=== PATIENT | female | born 1960 | race Caucasian/White ===

== ENCOUNTER 2021-08-01 20:11 | Inpatient (IN) ==
[2021-08-02 01:18] LABS: ABS Lymphocytes 0.9 10^3/ul (1.0-4.8); ABS Monocytes 0.4 10^3/ul (0-0.8); Hematocrit 30 % (35-47); Lymphocyte % 13.8 %; Mean Corpuscular HGB Conc 33 g/dL (31-36); Mean Corpuscular Hemoglobin 29 pg (27-31); Mean Corpuscular Volume 87 fL (80-97); Mean Platelet Volume 8.2 fL (7.4-10.4); Nucleated Red Blood Cells % 0.1; Platelet Count 228 10^3/uL (150-450); Red Blood Count 3.45 10^6 /uL (3.70-4.87); Red Cell Distribution Width 19 % (10-15); White Blood Count 6.3 10^3/uL (3.5-10.8)
[2021-08-02 01:35] LABS: Albumin/Globulin Ratio 1.3 (1-3); C Reactive Protein 45.24 mg/L (<8.01); Calcium 8.7 mg/dL (8.6-10.3); EGFR African American 108.3 (>60); EGFR Non-African American 89.5 (>60); Potassium 3.3 mmol/L (3.5-5.0); Total Bilirubin 0.4 mg/dL (0.2-1.0)
[2021-08-02 01:55] LABS: PCO2 Arterial 36 mmHg (35-45); PO2 Arterial 86 mmHg (80-100)
[2021-08-02] MEDS ORDERED: Al Hydrox/Mg Hydrox/Simet LIQ 30 ML UDC PO PRN (04:11)
[2021-08-02] MEDS ORDERED: Remdesivir 100 mg Vial 200 MG in NS 0.9% 250 ml 210 ML IV ONE (04:16)
[2021-08-02] MEDS ORDERED: Dextrose 50% Syringe 50 ml 25 GM/50 ML SYRINGE IV PUSH PRN (05:10)
[2021-08-02] MEDS ORDERED: NS 0.9% w/ 40 Meq KCL 1000 ML 1,000 ML IV SCH (06:00)
[2021-08-02 06:13] LABS: Albumin 3.6 g/dL (3.2-5.2); Albumin/Globulin Ratio 1.1 (1-3); Calcium 8.6 mg/dL (8.6-10.3); EGFR African American 108.3 (>60); EGFR Non-African American 89.5 (>60); Globulin 3.3 g/dL (2-4); Potassium 3.3 mmol/L (3.5-5.0); Total Bilirubin 0.4 mg/dL (0.2-1.0); Total Protein 6.9 g/dL (6.4-8.9)
[2021-08-02 10:17] LABS: INR 1.14 (0.86-1.15)
[2021-08-02] MEDS: Enoxaparin 40 MG/0.4 ML SYR SUBCUT SCH (11:17)
[2021-08-03 07:32] LABS: INR 1.09 (0.86-1.15)
[2021-08-03 07:42] LABS: Albumin 3.7 g/dL (3.2-5.2); Albumin/Globulin Ratio 1.1 (1-3); Calcium 9.2 mg/dL (8.6-10.3); EGFR African American 145.1 (>60); EGFR Non-African American 119.9 (>60); Globulin 3.3 g/dL (2-4); Potassium 3.6 mmol/L (3.5-5.0); Total Bilirubin 0.3 mg/dL (0.2-1.0)
[2021-08-03] MEDS: Enoxaparin 40 MG/0.4 ML SYR SUBCUT SCH (09:01)
[2021-08-03] MEDS: Remdesivir 100 mg Vial 100 MG in NS 0.9% 250 ml 230 ML IV SCH (09:01)
[2021-08-04 06:19] LABS: INR 1.12 (0.86-1.15)
[2021-08-04 06:30] LABS: Albumin 3.4 g/dL (3.2-5.2); Albumin/Globulin Ratio 1.1 (1-3); Calcium 8.7 mg/dL (8.6-10.3); EGFR African American 145.1 (>60); EGFR Non-African American 119.9 (>60); Potassium 3.4 mmol/L (3.5-5.0); Total Bilirubin 0.3 mg/dL (0.2-1.0); Total Protein 6.4 g/dL (6.4-8.9)
[2021-08-04] MEDS: Enoxaparin 40 MG/0.4 ML SYR SUBCUT SCH (09:16)
[2021-08-04] MEDS: Remdesivir 100 mg Vial 100 MG in NS 0.9% 250 ml 230 ML IV SCH (09:22)
[2021-08-05 07:17] LABS: Albumin 3.4 g/dL (3.2-5.2); Albumin/Globulin Ratio 1.1 (1-3); Calcium 8.6 mg/dL (8.6-10.3); EGFR African American 138.9 (>60); EGFR Non-African American 114.8 (>60); Potassium 3.6 mmol/L (3.5-5.0); Total Bilirubin 0.3 mg/dL (0.2-1.0); Total Protein 6.4 g/dL (6.4-8.9)
[2021-08-05 07:18] LABS: INR 1.19 (0.86-1.15)
[2021-08-05] MEDS: Enoxaparin 40 MG/0.4 ML SYR SUBCUT SCH (08:34)
[2021-08-05] MEDS: Remdesivir 100 mg Vial 100 MG in NS 0.9% 250 ml 230 ML IV SCH (10:00)
[2021-08-05 12:17] VITALS: BP 112/62
== END 2021-08-05 17:50 | disposition home or self-care (01) | DRG 137 ==
LOC: ED 20:11 → SUATTDRO 08-02 04:11 → MED 08-02 04:11
PROVIDERS: ADMIT Internal Medicine; ATTEND Internal Medicine

== ENCOUNTER 2024-04-30 09:29 | Inpatient (IN) ==
[2024-04-30] MEDS: Lactated Ringers SEPSIS* BAG 1,370 ML IV ONE (10:32)
[2024-04-30 10:44] LABS: Hematocrit 27.8 % (35-45); Hemoglobin 8.4 g/dL (11.5-14.3); Mean Corpuscular Hgb Conc 30.1 g/dL (31-36); Mean Corpuscular Volume 76.5 fL (80-97); Mean Platelet Volume 9.6 fL (7.5-11.2); Platelet Count 177 10^3/uL (150-450); Red Blood Count 3.63 10^6/uL (3.63-4.92); Red Cell Distribution Width 20.3 % (12-17); White Blood Count 17.3 10^3/uL (3.8-11.8)
[2024-04-30 10:56] LABS: Activated Partial Thrombo Time 27.9 seconds (26.0-38.0); INR 0.98 (0.83-1.13)
[2024-04-30] MEDS: Cefepime 2 GM in Dextrose 2 GM/50 ML BAG IV ONE (11:06)
[2024-04-30] MEDS: LACTATED RINGERS IV SCH (11:11)
[2024-04-30 11:35] LABS: Albumin 3.6 g/dL (3.2-5.2); Albumin/Globulin Ratio 1.2 (1-3); C Reactive Protein 218.4 mg/L (<8.01); Calcium 8.6 mg/dL (8.6-10.3); Creatinine, Serum 1.9 mg/dL (0.51-0.95); Potassium 4.2 mmol/L (3.5-5.0); Total Bilirubin 0.6 mg/dL (0.2-1.0); Total Protein 6.6 g/dL (6.4-8.9); eGFR CKD-EPI 29.3 (>60)
[2024-04-30 11:47] LABS: ABS Lymphocytes 0.3 10^3/uL (1.0-4.8); ABS Nucleated RBC 0.03 10^3/ul; Eosinophil % 0.1 %; Hypochromasia 2+; Lymphocyte % 1.6 %; Nucleated Red Blood Cells % 0.2 %/100WBC (0.0-0.8); Polychromasia 1+
[2024-04-30] MEDS: metroNIDAZOLE IV 500 MG/100ML 500 MG/100 ML BAG IVPB ONE (11:55)
[2024-04-30 12:34] LABS: High Sensitivity Troponin 1 Hr 94 pg/mL (<15)
[2024-04-30 12:46] LABS: Urine Appearance Turbid; Urine Bilirubin Negative (Negative); Urine Blood 2+ (Negative); Urine Color Light-Yellow; Urine Glucose 2+ (>=150 mg/dL) (Negative); Urine Ketones Negative (Negative); Urine Nitrite Negative (Negative); Urine Protein Trace (Negative); Urine Specific Gravity 1.003 (1.002-1.030); Urine Urobilinogen Negative (Negative); Urine pH 6.5 (5.0-8.0)
[2024-04-30 13:12] LABS: Urine Bacteria Absent /HPF (Absent); Urine Red Blood Cell 2+(6-10/hpf) /HPF (0-Trace); Urine Squamous Epithelial Cell Present /HPF (Absent); Urine White Blood Cell 3+(>20/hpf) /HPF (0-Trace)
[2024-04-30] MEDS: Vancomycin 1,250 MG in NS 0.9% 250 ml 250 ML IVPB ONE (13:12)
[2024-04-30] MEDS: Acetaminophen IV 1 GM/100ML 1,000 MG/100 ML BAG IV ONE (15:35)
[2024-04-30] MEDS ORDERED: Dextrose 50% Syringe 50 ml 25 GM/50 ML SYRINGE IV PUSH PRN (18:20)
[2024-04-30] MEDS: Lactated Ringers 1000 ml BAG 1,000 ML IV ONE (18:39)
[2024-04-30 18:43] LABS: Venous Bicarbonate HCO3 25.2 mmol/L (24-28)
[2024-04-30] MEDS: Cefepime 1 GM in Dextrose 1 GM/50 ML BAG IV SCH (18:44)
[2024-04-30] MEDS: metroNIDAZOLE IV 500 MG/100ML 500 MG/100 ML BAG IVPB SCH (19:23)
[2024-04-30 20:00] LABS: Calcium 8.1 mg/dL (8.6-10.3); Creatinine, Serum 1.43 mg/dL (0.51-0.95); Potassium 3.6 mmol/L (3.5-5.0); eGFR CKD-EPI 41.2 (>60)
[2024-04-30] MEDS: Lactated Ringers 1000 ml BAG 1,000 ML IV SCH (20:36)
[2024-05-01] MEDS: metroNIDAZOLE IV 500 MG/100ML 500 MG/100 ML BAG IVPB SCH (02:05)
[2024-05-01] MEDS: Acetaminophen IV 1 GM/100ML 1,000 MG/100 ML BAG IV PRN (02:31)
[2024-05-01] MEDS: Acetaminophen IV 1 GM/100ML 1,000 MG/100 ML BAG IV ONE (02:36)
[2024-05-01] MEDS: Cefepime 1 GM in Dextrose 1 GM/50 ML BAG IV SCH (06:00)
[2024-05-01 06:37] LABS: Hematocrit 23.3 % (35-45); Hemoglobin 7.5 g/dL (11.5-14.3); Mean Corpuscular Hemoglobin 24.2 pg (27-33); Mean Corpuscular Hgb Conc 32.1 g/dL (31-36); Mean Corpuscular Volume 75.2 fL (80-97); Platelet Count 108 10^3/uL (150-450); Red Cell Distribution Width 20.4 % (12-17); White Blood Count 7.3 10^3/uL (3.8-11.8)
[2024-05-01 06:51] LABS: Calcium 8.3 mg/dL (8.6-10.3); Creatinine, Serum 1.01 mg/dL (0.51-0.95); Magnesium 1.6 mg/dL (1.9-2.7); Potassium 3.2 mmol/L (3.5-5.0); eGFR CKD-EPI 62.6 (>60)
[2024-05-01] MEDS: Potassium Chlor 20 meq TAB.ER PO ONE (08:13)
[2024-05-01] MEDS: Potassium Chloride LIQUID 20 MEQ/15 ML LIQUID PO ONE ×2 (08:42→15:19)
[2024-05-01 08:44] LABS: Iron < 20 ug/dL (50-212)
[2024-05-01] MEDS: Magnesium Sulf 4 GM/100 ML IV 4,000 MG/100 ML BAG IVPB ONE (09:01)
[2024-05-01 09:02] LABS: Ferritin 91.7 ng/mL (11-307)
[2024-05-01 15:07] LABS: Hematocrit 23.3 % (35-45); Hemoglobin 7.2 g/dL (11.5-14.3)
[2024-05-01] MEDS: cefTRIAXone 2 gm/50 mL D5W 2 GM/50 ML BAG IV SCH (15:20)
[2024-05-01] MEDS: Psyllium PAK PO SCH (15:20)
[2024-05-01 15:59] LABS: Transferrin 286 mg/dL (203-362)
[2024-05-01 20:56] LABS: Hematocrit 24.1 % (35-45); Hemoglobin 7.7 g/dL (11.5-14.3)
[2024-05-02 06:53] LABS: Hematocrit 23.7 % (35-45); Hemoglobin 7.6 g/dL (11.5-14.3); Mean Corpuscular Hemoglobin 24.1 pg (27-33); Mean Corpuscular Hgb Conc 32.1 g/dL (31-36); Mean Corpuscular Volume 75.2 fL (80-97); Mean Platelet Volume 9.7 fL (7.5-11.2); Platelet Count 112 10^3/uL (150-450); Red Blood Count 3.15 10^6/uL (3.63-4.92); Red Cell Distribution Width 19.7 % (12-17); White Blood Count 7.3 10^3/uL (3.8-11.8)
[2024-05-02 08:10] LABS: % Iron Saturation 5 % (15-55); .Transferrin 271 mg/dL (203-362); Anion Gap 12 mmol/L (2-16); Blood Urea Nitrogen 12 mg/dL (6-24); CO2 Carbon Dioxide 25 mmol/L (22-32); Calcium 7.9 mg/dL (8.6-10.3); Chloride 92 mmol/L (101-111); Creatinine, Serum 0.84 mg/dL (0.51-0.95); Glucose 120 mg/dL (70-100); Iron < 20 ug/dL (50-212); Magnesium 1.9 mg/dL (1.9-2.7); Potassium 3.5 mmol/L (3.5-5.0); Sodium 129 mmol/L (135-145); Total Iron Binding Capacity 379 mcg/dL (250-450); Unsaturated Iron Binding 359 ug/dL
[2024-05-02] MEDS ORDERED: Senna TAB 8.6 mg TAB PO PRN (09:25)
[2024-05-02] MEDS: Polyethylene Glycol 3350 17 GM PACKET PO SCH (11:47)
[2024-05-02] MEDS: Potassium Chlor 20 meq TAB.ER PO ONE (12:02)
[2024-05-02] MEDS ORDERED: Psyllium PAK PO PRN (12:17)
[2024-05-02] MEDS: ceFAZolin VIAL 2 GM in NS 0.9% 100 ml BAG 100 ML IVPB SCH (16:57)
[2024-05-02] MEDS: Magnesium CITRATE LIQ 300 ML BTL PO ONE (22:58)
[2024-05-03 08:00] LABS: Calcium 8.1 mg/dL (8.6-10.3); Creatinine, Serum 0.81 mg/dL (0.51-0.95); Magnesium 1.9 mg/dL (1.9-2.7); Potassium 3.7 mmol/L (3.5-5.0); eGFR CKD-EPI 81.5 (>60)
[2024-05-03] MEDS ORDERED: Potassium Chlor 20 meq TAB.ER PO ONE (08:16)
[2024-05-03 08:21] LABS: Hematocrit 24.2 % (35-45); Hemoglobin 7.7 g/dL (11.5-14.3); Mean Corpuscular Hemoglobin 23.9 pg (27-33); Mean Corpuscular Volume 74.8 fL (80-97); Mean Platelet Volume 9.6 fL (7.5-11.2); Platelet Count 150 10^3/uL (150-450); Red Blood Count 3.23 10^6/uL (3.63-4.92); Red Cell Distribution Width 20.2 % (12-17)
[2024-05-03] MEDS: Potassium Chloride LIQUID 20 MEQ/15 ML LIQUID PO ONE (08:51)
[2024-05-03] MEDS: Magnesium Sulfate IV 1GM/100ML 1 GM/100 ML BAG IV ONE (09:00)
[2024-05-04 06:51] LABS: Hematocrit 25.6 % (35-45); Hemoglobin 8.1 g/dL (11.5-14.3); Mean Corpuscular Hemoglobin 23.8 pg (27-33); Mean Corpuscular Hgb Conc 31.7 g/dL (31-36); Mean Corpuscular Volume 75.1 fL (80-97); Mean Platelet Volume 9.3 fL (7.5-11.2); Platelet Count 252 10^3/uL (150-450); Red Blood Count 3.41 10^6/uL (3.63-4.92); Red Cell Distribution Width 20.4 % (12-17); White Blood Count 6.8 10^3/uL (3.8-11.8)
[2024-05-04 07:09] LABS: Calcium 8.2 mg/dL (8.6-10.3); Creatinine, Serum 0.74 mg/dL (0.51-0.95); Potassium 4.1 mmol/L (3.5-5.0); eGFR CKD-EPI 90.9 (>60)
[2024-05-04 08:02] LABS: ABS Eosinophils 0.1 10^3/uL (0.0-0.5); ABS Monocytes 0.9 10^3/uL (0.0-0.9); ABS Neutrophils 4.9 10^3/uL (1.5-7.6); ABS Nucleated RBC 0.01 10^3/ul; Lymphocyte % 14.5 %; Nucleated Red Blood Cells % 0.2 %/100WBC (0.0-0.8); RBC Morphology Normal (Normal)
[2024-05-04 08:29] LABS: C Reactive Protein 82.85 mg/L (<8.01)
[2024-05-04 10:06] VITALS: BP 112/60
== END 2024-05-04 15:55 | disposition home or self-care (01) | DRG 720 ==
LOC: ED 09:29 → EDHOLD 09:29 → SUATTDRO 16:41 → MED 20:26
PROVIDERS: ADMIT Internal Medicine; ATTEND Hospitalist